=== PATIENT | male | born 1965 | race Caucasian/White ===

== ENCOUNTER 2016-08-30 17:44 | Emergency (ER) | payer SELFPAY ==
[~2016-08-30] VITALS: Ht 175.3 cm; Wt 81.8 kg
[~2016-08-30 17:44] MED LIST: ASPI1TAB PO
[2016-08-30 17:52] VITALS: BP 138/88; PULSE 109; O2SAT 99
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
[2016-08-30] MEDS ORDERED: Ondansetron 2 mg/mL 2 mL Inj IVPUSH PRN (18:25)
--- NOTE | 2016-08-30 18:41 | DRSVH ---
PROCEDURE: X-RAY LEFT ANKLE, MINIMUM THREE VIEWS ([id number]) INDICATIONS: Left ankle injury TECHNIQUE: 3 views of the ankle were acquired. COMPARISON: None. FINDINGS: Bones: Postero-lateral sub-talar dislocation is present. Talus is dislocated laterally by roughly 14 mm, and posteriorly by roughly 20 mm. There is a moderately displaced fracture of the medial malleolu s. There is a moderately displaced fracture of the lateral malleolus. There is a moderately displaced fracture of the posterior malleolus. Soft tissues: No tibiotalar joint effusion. Achilles tendon appears normal. IMPRESSION: Trimalleolar ankle fracture dislocation. Dictated by: Pop Parra M.D. on 08/30/2016 at 18:39 Approved by: Pop Parra M.D. on 08/30/2016 at 18:40
--- NOTE | 2016-08-30 18:42 | DRSVH ---
PROCEDURE: X-RAY LEFT TIBIA/FIBULA, TWO VIEWS ([id number]) INDICATIONS: injury TECHNIQUE: 2 views of the tibia and fibula were acquired. COMPARISON: None. FINDINGS: Bones: Posterolateral subtalar trimalleolar ankle fracture dislocation is present. Soft tissues: No suspicious soft tissue calcifications or masses. IMPRESSION: Posterolateral subtalar trimalleolar ankle fracture dislocation. Dictated by: Pop Parra M.D. on 08/30/2016 at 18:40 Approved by: Pop Parra M.D. on 08/30/2016 at 18:40
[2016-08-30] MEDS: HYDROmorphone 1 mg/mL Inj IVPUSH PRN ×2 (18:44→19:17)
[2016-08-30] MEDS ORDERED: Propofol 10 mg/mL 20 mL Inj ONE (18:48)
--- NOTE | 2016-08-30 20:08 | DRSVH ---
PROCEDURE: X-RAY LEFT ANKLE, MINIMUM THREE VIEWS ([id number]) INDICATIONS: trauma post-reduction TECHNIQUE: 3 views of the ankle were acquired. COMPARISON: None. FINDINGS: A splint is present, obscuring fine bony detail. Bones: There is improved alignment of the trimalleolar fracture dislocation. No suspicious bony lesio ns. Soft tissues: No tibiotalar joint effusion. Achilles tendon appears normal. IMPRESSION: Improved alignment of trimalleolar fracture. Dictated by: Pop Parra M.D. on 08/30/2016 at 20:06 Approved by: Pop Parra M.D. on 08/30/2016 at 20:06
[2016-08-30] MEDS ORDERED: _HYDROcodone/APAP 5-325 mg Tablet PO PRN (20:50)
[2016-08-30 21:04] VITALS: BP 129/87; PULSE 98; RESP 16; O2SAT 99
== END 2016-08-30 21:11 | disposition home or self-care (01) ==
LOC: SED 17:44
DX: S82.852A Displaced trimalleolar fracture of left lower leg, initial encounter for closed fracture (principal); S93.05XA Dislocation of left ankle joint, initial encounter; V86.59XA Driver of other special all-terrain or other off-road motor vehicle injured in nontraffic accident, initial encounter; Y93.55 Activity, bike riding; Y99.8 Other external cause status; Y92.89 Other specified places as the place of occurrence of the external cause; F17.200 Nicotine dependence, unspecified, uncomplicated; F12.10 Cannabis abuse, uncomplicated
CPT/HCPCS: 27840; 73590; 73610; 94770; 94799; 96374; 96375; 96376; 99152; 99153; 99285; J1170; J2405

== ENCOUNTER 2016-09-03 13:05 | Day surgery (SDC) | payer SELFPAY ==
[~2016-09-03] VITALS: Ht 177.8 cm; Wt 82.0 kg
[2016-09-03] VITALS (11 sets, daily range): BP systolic 132–175; BP diastolic 77–105; PULSE 100–126; RESP 9–20; O2SAT 93–99
[2016-09-03] MEDS ORDERED: Lidocaine PF 1% 30 mL Inj ONE (13:06)
[2016-09-03] MEDS ORDERED: Propofol 10,000 mCg/mL 20 mL Inj ONE (13:06)
[2016-09-03] MEDS ORDERED: Dexamethasone 4 mg/mL Inj ONE (13:06)
[2016-09-03] MEDS ORDERED: Ondansetron 2 mg/mL 2 mL Inj ONE (13:06)
[2016-09-03] MEDS ORDERED: fentaNYL-PF 50 mCg/mL 2 mL Inj ONE (13:06)
[2016-09-03] MEDS ORDERED: HYDR-4003 PO (13:36)
[2016-09-03] MEDS ORDERED: Lactated Ringer's 1,000 ML IV ONE ×2 (13:53→13:57)
[2016-09-03] MEDS ORDERED: Acetaminophen IV 1,000 MG in IV Premix 1 EACH IV ONE (14:00)
[2016-09-03] MEDS ORDERED: HYDROmorphone 1 mg/mL Inj ONE (14:02)
[2016-09-03] MEDS: HYDROmorphone 0.5 mg/0.5 mL iSecure Syringe IVPUSH PRN ×4 (14:11→14:28)
[2016-09-03] MEDS ORDERED: CeFAZolin Inj 2 gm / 50mL D5W IV ONE (16:15)
[2016-09-03] MEDS ORDERED: Bacitracin 50,000 unit Inj ONE (16:43)
--- NOTE | 2016-09-03 17:00 | PCM.HPANE ---
Patient Data Date of Service: September 03, 2016 Surgeon Admitting Provider: Attending Provider:Hugo Baig MD Primary Care Physician:Nilton Adams MD Other Provider:Hayley Agustin Anesthesia Reason for Visit Left Ankle Fracture Ht/WT & BMI Height (Feet): 5 Height (Inches): 10 Weight (Kilograms): 82 Body Mass Index 25.00 Allergies Coded Allergies: No Known Allergies (Unverified Allergy, 08/07/11) Past Anesthesia History Anesthesia History: Denies:: Anesthesia Reactions, Fam Anesthesia Reaction, Fam Malignant Hypertherm, Malignant Hyperthermia Diabetes History Hx Diabetes?: No MRSA MRSA: No Medications Reported Medications Hydrocodone-Acetaminophen 5-325 mg 1 Each Tablet1 Tablet PO Q4H PRN For Pain Ref 0 09/03/16 Discontinued Reported Medications Aspirin/Acetaminophen/Caffeine (Excedrin Tablet)1 Each Tablet2 Each PO PRN EVERY 24 HOURS 08/07/11 History History of ENT Problems?: No HEENT History: Denies:: Abnormal Airway Cataracts Difficult Intubation Dysphagia Glaucoma Hearing Problem Sinus Problem TMJ Denture Type: None Teeth Condition: Within Normal Limits Hx of Heart Problems?: No Cardiovascular History: Denies:: AICD Abdominal Aortic Aneurism Atrial Fibrillation Cardiac Surgery Chest Pain Congestive Heart Failure Coronary Artery Disease Edema Heart Murmur Hypertension Irregular Heartbeat Pacemaker Peripheral Vascular Rheumatic Fever Thrombophlebitis Valvular Heart Disease Hx of Respiratory Problem?: No Respiratory History: Denies:: Asthma COPD Chest Surgery Cough Dyspnea Emphysema Hemoptysis Oxygen Administration Pneumonia Pulmonary Embolism Tuberculosis Use of C-PAP Machine Use of Inhalers / NEBS Hx Neurologic Problems?: No Neurological History: Denies:: Alzheimer's Disease CVA Dementia Dizziness Headaches Multiple Sclerosis Parkinson's Disease Peripheral Neuropathy Seizures TIA Hx of GI Problems?: No Hx of Problems?: No Male Hx: Denies:: Prostate Problems Scrotal Mass Testicular Surgery Skin History: Denies:: History Skin Disorders? Pressure Ulcers Hx Musculoskeletal Problems?: Yes Musculoskeletal History: Positive for:: Musculoskeletal Trauma (R ANKLE CURRENT PROBLEM) Denies:: Back Injury (C/OF CHRONIC NECK PAIN) Hx of Psycho/Social Problems?: No Hx Surgeries?: Yes (INGUINAL HERNIA RPR, L KNEE SURG) Hx Any Other Health Problems?: Yes Other History: Denies:: Cancer Endocrine Disease Hospitalization Thyroid Disease History Blood Transfusions: Positive for:: Accept Blood Products? Denies:: Blood Transfusions Hx Diabetes: No Hx Alcohol Use: YesAlcoholic Drinks Per Day: 1/2 BEER TODAY, 2 BEERS PER DAY Hx Substance Use: Yes (MARIJUANA) Smoking Status: Current Every Day Smoker Stop/Bang S-Snoring: Do You Snore Loudly: No T-Tired: feel tired, fatigued: No O-Obsered: Observed not breath: No P-Blood Pressure: treated: No B- Body Mass Index > 35 kg/m2: No A- Age over 50: No N- Neck Large Circumference: No G- Gender Male: Yes JOSÉ Total Score: 1 JOSÉ Risk Assessment: Low Risk, <3 Yes Risk Assessment Category Category 1A: Patient has history of documented sleep apnea, and HAS NOT received any narcotic, sedative or anesthesia administration during this stay. Category 1B: Patient has history of documented sleep apnea, and HAS received any narcotic , sedative or anesthesia administration during this stay Category 2: Patient has SUSPECTED Obstructive Sleep Apnea, and HAS received any narcotic , sedative or anesthesia administration during this stay. Category 3: Patient has SUSPECTED Obstructive Sleep Apnea and HAS NOT received narcotic, sedative or anesthesia administration during this stay. Category 4: Outpatient in Procedural Areas with known sleep apnea or who screen positive for High Risk via the STOP/BANG questionnaire. Exam Exam Vital Signs Vital Signs Date Time Temp Pulse Resp B/P Pulse Ox O2 Delivery O2 Flow Rate FiO2 09/03/16 13:20 36.3 100 16 140/90 99 Room Air General Appearance: Alert, Oriented X3, Cooperative, No Acute Distress HEENT/AIRWAY: MP 2 Lungs: Clear to Auscultation, Normal Air Movement Heart: Exam Unremarkable, Regular Rate/Rhythm, No Murmurs/Rubs/Gallops Meds/Labs/Diagnostics Admission Meds Current Medications Lactated Ringer's (Lr) 1,000 ml @ ud STK-MED ONCE IV Last administered on 09/03 13:53; Start 09/03/16 at 13:53; Stop 09/03/16 at 13:54; Status DC Acetaminophen (Tylenol IV) 1,000 mg STK-MED ONCE IV Last administered on 14:30; Start 09/03/16 at 14:02; Stop 09/03/16 at 14:05; Status DC Plan Impression Patient chart reviewed, patient interviewed and anesthestic plan with risks, benefits, and alternatives discussed, and informed consent obtained. NPO per Anesth. Guidelines: Yes ASA Physical Status: ASA2 Mod Systemic Disease Anesthetic Plan: GA Bene/Risks/Altern/Consents: Yes HP Complete Prior to Induction: Yes Russel Reina MD September 03, 2016 17:00
[2016-09-03] MEDS ORDERED: Ropivacaine-PF 0.5% 30 mL Inj INFILTRATE ONE (17:36)
[2016-09-03] MEDS ORDERED: Bacitracin 50,000 unit Inj IRRIGATION ONE (18:21)
[2016-09-03] MEDS ORDERED: HYDROcodone-APAP 5-325 mg Tablet PO PRN (18:50)
[2016-09-03] MEDS ORDERED: Ketorolac 15 mg/mL Inj IVPUSH ONE (18:50)
--- NOTE | 2016-09-03 18:57 | PCM.ORTHOP ---
Orthopedic Operative Report Date of Service: September 03, 2016 Pre Operative Diagnosis Left ankle closed trimalleolar fracture Post Operative Diagnosis Same Procedure Left ankle trimalleolar fracture open reduction internal fixation with syndesmosis fixation Surgeon Surgeon: Hugo Baig MD Assistants:Blade Conway Indication for Procedure Left ankle fracture Findings Per dictation Details of Procedure Indications: Vasquez Darling is a 50-year-old male who sustained a left trimalleolar ankle fracture. A clear explanation was given to the patient regarding the condition present, and the available conservative and surgical options. It was emphasized that the risks and benefits of surgery include but are not limited to infection, wound healing problems, damage to adjacent structures such as nerves, blood vessels and tendons, intermediate project manager disability and pain, arthritis, hypersensitivity, deep vein thrombosis, pulmonary embolism, broken hardware, failure of surgery, need for further procedures at time of surgery or later, cast related problems, loss of limb or life. The patient was given an explanation and the patient voiced understanding of what to expect after the procedure or surgery, the limitations in activities of daily living, the likely duration for post operative recovery and the instructions that are to be followed. At the end the patient was invited to seek clarification or ask further questions but there were none. The patient voiced understanding of the entire consultation. Description of Operation: The patient was brought to the operating room. Patient name and surgical site were confirmed. Preoperative antibiotics were given. The patient was placed supine on the operating table. General anesthesia was administered. A well padded tourniquet was placed on the leg. The leg was then prepped and draped in the usual sterile fashion. The leg was exsanguinated and the tourniquet was inflated. The lateral malleolus was addressed first. An incision was made over the lateral ankle. Subcutaneous dissection was performed down to the lateral malleolus. Care was taken to avoid injury to the superficial peroneal nerve. The fracture was cleaned of debris and interposed soft tissue. The fracture was reduced to anatomic alignment using reduction clamps and preliminary fixation techniques. There was an oblique fracture and the bone was amenable to lag screw fixation. 2 lag screws were placed for provisional fixation. Fluoroscopy was used to confirm satisfactory reduction. A one-third tubular plate was then placed and secured in position using 3.5 mm fully threaded cortical screws proximally and 3.5 mm locking screws distally. Solid bony purchase was achieved with a combination of locking and nonlocking screws. The medial side was addressed next. An incision was made over the medial malleolus and centered over the fracture site. Subcutaneous dissection was performed down to bone. Adequate exposure was achieved. Care was taken to avoid injury to the saphenous nerve and vein. The fracture was cleaned of debris and interposed soft tissue. The medial malleolus was comminuted and felt that screw fixation might not be adequate to achieve anatomic reduction and secure fixation. The fracture was reduced to anatomic alignment using preliminary fixation techniques and a 1.5 mm K-wire. Fluoroscopy was used to confirm satisfactory reduction. A medial hook plate was then secured onto bone with tamping of the hooks onto the tip of the medial malleolus and securing the plate with fully threaded cortical and cancellous screws, 3.5 mm bicortical screw proximally and a partially threaded cancellous home run screw distally from the tip of the medial malleolus and into metaphyseal bone with solid bony purchase. Final radiographs confirmed anatomic reduction of the fracture, cheondoism of the ankle mortise, and adequate placement of hardware. The ankle joint was stressed and the syndesmosis was found to be unstable. A tight rope was used to tighten them syndesmosis with the foot and dorsiflexion. After the syndesmosis was secured , no subluxation of the joint on the lateral view was noted so the decision was made not to fix the posterior malleolus fracture which was stable. The tourniquet was deflated. Hemostasis was obtained with electrocautery. The wounds were thoroughly irrigated with bulb irrigation. The wounds were then closed in layers. The incisions were cleaned and dressed with Adaptic, gauze, and soft roll. A well padded plaster splint was then placed and wrapped with an Usman bandage. Estimated blood loss was 15 cc. There were no immediate complications. The patient was transferred to the PACU in stable condition. I was present for the entire procedure. Description of Findings: Oblique distal fibular fracture, severely comminuted medial malleolus, and small posterior malleolus fracture involving less than 15 % of the articular surface with no instability on stressing CRUSHED STONE GRADER SURGEON: During the operation, the services of physician surgical dressing maker were medically indicated and necessary to provide exposure of the operative site for the surgical procedure and to maintain the limb in a proper position to carry out the operation safely and efficiently. Without the qualified medical assistant dermatology being present, it would have extended the operative procedure and made the procedure technically more difficult to perform. Please keep dressing clean dry and intact. Do not remove dressing until follow- up in clinic. Do not weight-bear on the affected extremity. You may use crutches or a walker/scooter to help with ambulation on your unaffected extremity. You will follow up in clinic in 10-14 days for suture removal, and placement of new Steri-Strips. You will follow-up with me in clinic with new x- rays at this time. You will follow-up with me at 6 weeks postop and may start weightbearing as tolerated when radiographic healing noted which may take an additional 4-6 weeks. Please keep the affected extremity elevated when possible. You may use ice and/or heat as needed for comfort (preferably ice during the first 48-72 hours). Please feel free to call with any further questions, comments, and/or concerns. Grafts, Implants: Implants-See Implant Record Complications There were no periprocedural complications identified. Condition Stable Anesthetic Administered: GA Catheters: None Output, Estimated Blood Loss: 5 Blood Admin during surgery: No Surgical Cast or Splint: Well-padded Short Leg Splint Surgical Specimen Removed: No Specimen sent to Pathology: No copies to: Hugo Baig MD, Christopher L MD September 03, 2016 18:57
--- NOTE | 2016-09-03 20:30 | PCM.ANEP1 ---
Post Anesthesia Phase 1 PACU Phase 1 Assessment Date of Service: September 03, 2016 Vital Signs Vital Signs Date Time Temp Pulse Resp B/P Pulse Ox O2 Delivery O2 Flow Rate FiO2 09/03/16 20:23 37.2 115 16 132/79 95 Room Air 09/03/16 20:06 115 19 141/85 93 Room Air 09/03/16 19:56 126 20 145/105 95 Room Air 09/03/16 19:46 120 12 133/96 95 Room Air 09/03/16 19:31 111 10 143/94 94 Room Air 09/03/16 19:26 111 9 149/92 94 Room Air 09/03/16 19:20 111 9 146/92 94 Room Air 09/03/16 19:12 113 9 140/93 94 Room Air 09/03/16 19:06 37.1 117 9 148/91 94 Room Air 09/03/16 13:20 36.3 100 16 140/90 99 Room Air Anesthetic Administered: GA Level of Alertness: Awake, talking Pain: No Nausea or Vomiting: No Cardiovascular Function and Hy: Yes Oxygen Delivery: Room Air Lungs: Clear to Auscultation, Normal Air Movement Complications: No Russel Reina MD September 03, 2016 20:30
--- NOTE | 2016-09-03 21:30 | NUR ---
Recover and discharge Pt arrived at approximately 2039, with no complaints of pain. Tolerated PO intake w/o nausea. Vitals stable upon arrival. Full sensation in toes with good capillary refill. Skin warm and pink, able to wiggle toes. Able to urinate, about 700ml. Ambulated to BR with CIVIL ENGINEERING DRAFTSPERSON and FWW, compliant with non-weight bearing status. IV removed and intact. Discharge information and follow up with patient, all questions answered. DC'd home with daughter.
== END 2016-09-03 23:59 | disposition home or self-care (01) ==
LOC: SAS 13:05
PROVIDERS: ATTEND Orthopaedic Surgery
DX: S82.852A Displaced trimalleolar fracture of left lower leg, initial encounter for closed fracture (principal); S93.432A Sprain of tibiofibular ligament of left ankle, initial encounter; V88.8XXA Person injured in other specified noncollision transport accidents involving motor vehicle, nontraffic, initial encounter; Y93.I9 Activity, other involving external motion; Y92.9 Unspecified place or not applicable; Y99.8 Other external cause status; F17.210 Nicotine dependence, cigarettes, uncomplicated; F12.90 Cannabis use, unspecified, uncomplicated
CPT/HCPCS: 27823; 27829; 73610; 76001; C1713; J0131; J0690; J1100; J1170; J1885; J2250; J2405; J3010; J7120